=== PATIENT | male | born 1965 | race Caucasian/White ===

== ENCOUNTER 2016-03-09 10:58 | Emergency (ER) | payer MEDICAID ==
[~2016-03-09] VITALS: Ht 175.3 cm; Wt 80.0 kg
[~2016-03-09 10:58] MED LIST: ALBU0.08 NEB; ALBUAER3 INH; PRED20 PO; PRED50 PO; VENTAER INH
[2016-03-09 11:00] VITALS: BP 143/88; PULSE 77; RESP 14; TEMP 97.5; O2SAT 97
[2016-03-09] MEDS ORDERED: predniSONE 20 MG TAB PO ONE (11:15)
--- NOTE | 2016-03-09 11:18 | PD ---
HPI Chief Complaint: Respiratory Symptoms Time Seen by Provider: 11:15 Travel History International Travel<30 days: No Contact w/Intl Traveler<30days: No Traveled to known affect area: No History of Present Illness HPI Patient comes in complaining of asthma exacerbation that began around 3:30 this morning. Patient states he ran out of his rescue inhaler and has been using his albuterol for symptomatic relief. Patient states he even took a walk with his dog this seemed to help improve his symptoms some. Patient states he still feels tightness from his asthma has issues getting his albuterol secondary to his insurance. Patient denies any fevers, chest pain, nausea, vomiting, headache, numbness or tingling anywhere. Patient states feels like his previous asthma exacerbations. PFSH Past Medical History Hx Anticoagulant Therapy: No Asthma: Yes Cardiovascular Problems: No Chemotherapy: No Cerebrovascular Accident: No Diabetes: No Diminished Hearing: No Headaches: Yes Kidney Stones: Yes Respiratory: Yes (asthma) Immunizations Current: Yes Migraines: Yes Pneumonia: Yes Past Surgical History Tonsillectomy: Yes Social History Alcohol Use: Yes (VERY RARE) Tobacco Use: Yes (occasional cigar) Substance Use: No Allergies-Medications (Allergen,Severity, Reaction): Coded Allergies: No Known Allergies (Verified , 03/09/16) Reported Meds & Prescriptions Reported Meds & Active Scripts Active Albuterol Neb (Albuterol Sulfate) 2.5 Mg/3 Ml Neb 2.5 Mg NEB Q4HR NEB PRN While awake Prednisone (21) 10 mg tab Dose Pack (Prednisone) 10 Mg Pack 10 Mg PO DIRECTED Ventolin Hfa 18 GM Inh (Albuterol Sulfate) 90 Mcg/Act Aer 2 Puff INH Q4H PRN Flovent Hfa 10.6 GM Inh (Fluticasone Propionate) 44 Mcg/Act Inh 2 Puff INH BID Use daily at the same time. Albuterol Neb (Albuterol Sulfate) 2.5 Mg/3 Ml Neb 2.5 Mg NEB Q4HR NEB PRN Ventolin Hfa 18 GM Inh (Albuterol Sulfate) 90 Mcg/Act Aer 2 Puff INH Q4H PRN Reported Proair Hfa 8.5 GM Inh (Albuterol Sulfate) 90 Mcg/Act Aer 1 Puff INH Q4H PRN 108 mcg/actuation Review of Systems Except as stated in HPI: all other systems reviewed are Neg Physical Exam Narrative GENERAL: Well-developed, well nourished, in no acute distress, and non-ill appearing. SKIN: Warm and dry. HEAD: Atraumatic. Normocephalic. EYES: Pupils equal and round. EOMI. No scleral icterus. No injection or drainage. ENT: No nasal bleeding or discharge. Mucous membranes pink and moist. NECK: Trachea midline. Supple. No nuclear rigidity. CARDIOVASCULAR: Regular rate and rhythm. No murmur appreciated. RESPIRATORY: No accessory muscle use. No respiratory distress. Wheezing noted throughout. Breath sounds equal bilaterally. Speaking in full sentences. MUSCULOSKELETAL: No obvious deformities. No clubbing. No cyanosis. No edema. Full range of motion. NEUROLOGICAL: Awake and alert. No obvious cranial nerve deficits. Motor grossly within normal limits. Normal speech. PSYCHIATRIC: Appropriate mood and affect; insight and judgment normal. Data Data Last Documented VS Vital Signs Date Time Temp Pulse Resp B/P Pulse Ox O2 Delivery O2 Flow Rate FiO2 03/09/16 13:27 88 20 135/74 99 03/09/16 12:09 21 03/09/16 11:00 97.5 Room Air Orders Albuterol-Ipratropium Neb (Duoneb Neb) (03/09/16 11:15) Prednisone (Deltasone) (03/09/16 11:15) MDM Medical Decision Making Medical Screen Exam Complete: Yes Emergency Medical Condition: Yes Differential Diagnosis Asthma exacerbation, pneumonia, bronchitis, upper respiratory infection, other Narrative Course The patient looks great and improved well with Nebulizer and steroid medication. The patient is moving air well and in no distress nor significant dyspnea, and oxygen saturation is within normal limits. There is no clinical evidence to suggest pneumonia at this time. Diagnosis, plan of care and management were discussed with the patient who agreed with plan and feels better and ready to go home. The patient was instructed to return if worsen, worsening difficulty breathing or wheezing, persistent fever, chest pain or as needed. Patient in no obvious distress upon re-evaluation. Discussed patient with Dr. Abad, who saw and evaluated the patient recommended starting the patient on Flovent along with his rescue inhaler. Any questions/concerns in reference to patient diagnosis/condition discussed and clarified prior to patient's discharge. Reinforced sheer importance of close follow up with patient's primary physician or primary care clinic. Instructed patient to return to ED immediately, if symptoms return/worsen. Pt showed understanding of above instructions. Further instructions and recommendations were detailed in discharge paperwork. Pt ambulated without difficulty out of ED at discharge. Scripts Albuterol Neb 2.5 Mg/3 Ml Neb2.5 Mg NEB Q4HR NEB PRN (SHORTNESS OF BREATH) #1 BOX Ref 0 While awake Prov:Saulo Abad MD 03/09/16 Prednisone (21) 10 mg tab Dose Pack 10 Mg Pack10 Mg PO DIRECTED #1 DSPK Ref 0 Prov:Saulo Abad MD 03/09/16 Albuterol 18 GM Inh (Ventolin Hfa 18 GM Inh)90 Mcg/Act Aer2 Puff INH Q4H PRN ( SHORTNESS OF BREATH) #1 INHALER Ref 2 Prov:Saulo Abad MD 03/09/16 Fluticasone 10.6 GM Inh (Flovent Hfa 10.6 GM Inh)44 Mcg/Act Inh2 Puff INH BID # 1 INHALER Ref 0 Use daily at the same time. Prov:Saulo Abad MD 03/09/16 Wil Lechuga Mar 09, 2016 11:17
[2016-03-09] MEDS ORDERED: PRED10PA PO (11:59)
[2016-03-09] MEDS ORDERED: FLUTI44I INH (11:59)
[2016-03-09] MEDS ORDERED: VENTAER INH (11:59)
[2016-03-09] MEDS: RESP: ALBUTEROL 2.5 MG/IPRATROPIUM 0.5 MG NEB (SCH) INH ×2 (12:06→12:07)
[2016-03-09 12:09] VITALS: O2SAT 94
[2016-03-09] MEDS ORDERED: ALBU0.08 NEB (12:20)
[2016-03-09 13:27] VITALS: BP 135/74
--- NOTE | 2016-03-09 13:44 | PD ---
Data Data Last Documented VS Vital Signs Date Time Temp Pulse Resp B/P Pulse Ox O2 Delivery O2 Flow Rate FiO2 03/09/16 13:27 88 20 135/74 99 03/09/16 12:09 21 03/09/16 11:00 97.5 Room Air Orders Albuterol-Ipratropium Neb (Duoneb Neb) (03/09/16 11:15) Prednisone (Deltasone) (03/09/16 11:15) MDM Supervised Visit with OLIVIA: Yes Narrative Course The history, exam, and medical decision-making in the associated mid-level provider note were completed with my assistance. I reviewed and agree with the findings presented. I attest that I had a [id number] encounter with the patient on the same day, and personally performed and documented my assessment and findings in the medical record. *My assessment and Findings: 50-year-old male with a history of asthma, presents with worsening asthma symptoms, out of medications. Some URI symptoms. No evidence of pneumonia. Recommend continue supportive treatment. Patient Instructions: General Instructions Departure Forms: Tests/Procedures Scripts Albuterol Neb 2.5 Mg/3 Ml Neb2.5 Mg NEB Q4HR NEB PRN (SHORTNESS OF BREATH) #1 BOX Ref 0 While awake Prov:Saulo Abad MD 03/09/16 Prednisone (21) 10 mg tab Dose Pack 10 Mg Pack10 Mg PO DIRECTED #1 DSPK Ref 0 Prov:Saulo Abad MD 03/09/16 Albuterol 18 GM Inh (Ventolin Hfa 18 GM Inh)90 Mcg/Act Aer2 Puff INH Q4H PRN ( SHORTNESS OF BREATH) #1 INHALER Ref 2 Prov:Saulo Abad MD 03/09/16 Fluticasone 10.6 GM Inh (Flovent Hfa 10.6 GM Inh)44 Mcg/Act Inh2 Puff INH BID # 1 INHALER Ref 0 Use daily at the same time. Prov:Saulo Abad MD 03/09/16 Disposition: 01 DISCHARGE HOME Saulo Abad MD Mar 09, 2016 13:43
== END 2016-03-09 13:27 | disposition home or self-care (01) ==
LOC: NEPE 10:58
DX: J45.901 Unspecified asthma with (acute) exacerbation (principal)
CPT/HCPCS: 94640; 94664; 99283; J7512

== ENCOUNTER 2016-04-25 04:16 | Emergency (ER) | payer MEDICAID ==
[~2016-04-25] VITALS: Ht 172.7 cm; Wt 80.0 kg
[~2016-04-25 04:16] MED LIST changes: +FLUTI44I INH; +PRED10PA PO; -PRED20 PO; -PRED50 PO
[2016-04-25 04:18] VITALS: BP 143/85; PULSE 76; RESP 16; TEMP 98; O2SAT 94
[2016-04-25 04:31] VITALS: BP 132/88; PULSE 76; RESP 21; O2SAT 96
[2016-04-25] MEDS: RESP: ALBUTEROL 2.5 MG/IPRATROPIUM 0.5 MG NEB (SCH) INH (04:38)
[2016-04-25] MEDS ORDERED: predniSONE 20 MG TAB PO ONE (04:45)
--- NOTE | 2016-04-25 05:18 | PD ---
HPI Chief Complaint: Respiratory Symptoms Time Seen by Provider: 04:31 Travel History International Travel<30 days: No Contact w/Intl Traveler<30days: No Traveled to known affect area: No History of Present Illness HPI 50 y/o male presents with cough and wheezing. He has been around multiple sick contacts. He denies other concurrent complaints. He states that his inhaler is not helping. He states he feels worse when he moves around. He denies other modifying factors. He states he used to be a smoker but he quit. PFSH Past Medical History Hx Anticoagulant Therapy: No Asthma: Yes Cardiovascular Problems: No Chemotherapy: No Cerebrovascular Accident: No Diabetes: No Diminished Hearing: No Headaches: Yes Kidney Stones: Yes Respiratory: Yes (ASTHMA) Immunizations Current: Yes Migraines: Yes Pneumonia: Yes Past Surgical History Tonsillectomy: Yes Social History Alcohol Use: Yes (VERY RARE) Tobacco Use: Yes (occasional cigar) Substance Use: No Allergies-Medications (Allergen,Severity, Reaction): Coded Allergies: No Known Allergies (Verified , 04/25/16) Reported Meds & Prescriptions Reported Meds & Active Scripts Active Prednisone 50 Mg Tab 50 Mg PO DAILY Zithromax Z-João (Azithromycin) 250 Mg Dspk 250 Mg PO DIRECTED 500 MG (2 tabs) day 1, then 1 tab days 2-5. Albuterol Neb (Albuterol Sulfate) 2.5 Mg/3 Ml Neb 2.5 Mg NEB Q4HR NEB PRN While awake Flovent Hfa 10.6 GM Inh (Fluticasone Propionate) 44 Mcg/Act Inh 2 Puff INH BID Use daily at the same time. Ventolin Hfa 18 GM Inh (Albuterol Sulfate) 90 Mcg/Act Aer 2 Puff INH Q4H PRN Reported Proair Hfa 8.5 GM Inh (Albuterol Sulfate) 90 Mcg/Act Aer 1 Puff INH Q4H PRN 108 mcg/actuation Review of Systems Except as stated in HPI: all other systems reviewed are Neg Physical Exam Narrative General: No apparent distress, well appearing ENT: mmm Neck: Neck is supple, no meningeal signs, trachea is midline Cardiovascular: Regular rate and rhythm Lungs: No increased respiratory effort noted, faint intermittent wheezing bilaterally Extremities: No edema Neuro: Awake, motor and sensation grossly intact, normal speech Data Data Last Documented VS Vital Signs Date Time Temp Pulse Resp B/P Pulse Ox O2 Delivery O2 Flow Rate FiO2 04/25/16 04:31 76 21 132/88 96 Room Air 04/25/16 04:18 98.0 Orders Influenzae A/B Antigen (04/25/16 04:31) Chest, Pa & Lat (04/25/16 ) Prednisone (Deltasone) (04/25/16 04:45) Albuterol-Ipratropium Neb (Duoneb Neb) (04/25/16 04:45) Albuterol-Ipratropium Neb (Duoneb Neb) (04/25/16 05:30) MDM Medical Decision Making Medical Screen Exam Complete: Yes Emergency Medical Condition: Yes Medical Record Reviewed: Yes (past history confirmed) Interpretation(s) flu is negative Chest x-ray mild bilateral streaky infiltrate Differential Diagnosis Pneumonia, URI, asthma Narrative Course Will check influenza and chest x-ray and dose with prednisone and DuoNeb's and reevaluate on recheck ctab, 98 on room air, Patient denies any new complaints and states that they are feeling better. Patient happy with care, all questions answered. Patient knows that follow up is incumbent on them and to return to the emergency room immediately if new or worsening symptoms develop. Patient given strict return precautions, vitals reviewed and are normal, agrees to further workup as an outpatient. requests albuterol neb refill Diagnosis Primary Impression: Asthma exacerbation Additional Impression: Pneumonia Qualified Code: J18.9 - Pneumonia of both lower lobes due to infectious organism Patient Instructions: General Instructions Additional Instructions: Follow with primary Tuesday, albuterol as needed, return as needed Med/Other Pt SpecificInfo: Prescription(s) given Scripts Prednisone 50 Mg Tab50 Mg PO DAILY #5 TAB Prov:Myrna Mock MD 04/25/16 Azithromycin (Zithromax Z-João)250 Mg [id number] Mg PO DIRECTED #1 DSPK 500 MG (2 tabs) day 1, then 1 tab days 2-5. Prov:Myrna Mock MD 04/25/16 Albuterol Neb 2.5 Mg/3 Ml Neb2.5 Mg NEB Q4HR NEB PRN (SHORTNESS OF BREATH) #1 BOX Ref 0 While awake Prov:Myrna Mock MD 04/25/16 Disposition: 01 DISCHARGE HOME Condition: Stable Myrna Mock MD Apr 25, 2016 05:18
[2016-04-25] MEDS ORDERED: RESP: ALBUTEROL 2.5 MG/IPRATROPIUM 0.5 MG NEB (SCH) NEB ONE (05:30)
--- NOTE | 2016-04-25 05:37 | RADRPT ---
EXAM DATE/TIME: 04/25/2016 05:20 [facility] COMPARISON: CHEST SINGLE AP, October 23, 2015, 22:49. INDICATIONS : Shortness of breath. MEDICAL HISTORY : Asthma SURGICAL HISTORY : None. ENCOUNTER: Initial ACUITY: 1 day PAIN SCORE: 0/10 LOCATION: Bilateral chest FINDINGS: There is mild streaky basilar parenchymal opacity. No evidence of effusion. Cardiomediastinal contour s and pulmonary vascularity are satisfactory. Thoracic skeleton is intact. CONCLUSION: Slight streaky basilar parenchymal opacities. Te Long MD on April 25, 2016 at 5:35 Board Certified Radiologist. This report was verified electronically.
[2016-04-25] MEDS ORDERED: PRED50 PO (05:46)
[2016-04-25] MEDS ORDERED: ZITHTAB PO (05:46)
[2016-04-25] MEDS ORDERED: ALBU0.08 NEB (05:46)
[2016-04-25 05:54] VITALS: BP 131/87
== END 2016-04-25 05:57 | disposition home or self-care (01) ==
LOC: NEPE 04:16
DX: J18.9 Pneumonia, unspecified organism (principal); J45.901 Unspecified asthma with (acute) exacerbation; Z87.891 Personal history of nicotine dependence
CPT/HCPCS: 71020; 87804; 94640; 94664; 99285; J7512

== ENCOUNTER 2016-11-29 05:49 | Emergency (ER) | payer OTHER, MEDICAID ==
[~2016-11-29] VITALS: Ht 175.3 cm; Wt 78.8 kg
[~2016-11-29 05:49] MED LIST changes: -PRED10PA PO; +PRED50 PO; +ZITHTAB PO
[2016-11-29 06:00] VITALS: BP 149/94; PULSE 74; RESP 18; TEMP 98.7; O2SAT 96
--- NOTE | 2016-11-29 06:10 | PD ---
HPI Chief Complaint: Musculoskeletal Complaint Time Seen by Provider: 06:08 Travel History International Travel<30 days: No Contact w/Intl Traveler<30days: No Traveled to known affect area: No History of Present Illness HPI 51-year-old male patient with history of multiple orthopedic surgeries, kidney stones, presents to the ER today because he states that he slipped while getting into his truck and fell onto his left flank area, and is having left flank pains which hurts with movement. He denies any loss of consciousness, significant head injury, or other injuries. Pain is currently measured a 5 out of 10. Modifying Factors: None Associated Signs & Symptoms: Fall, left flank injury Risk Factors: None PFSH Past Medical History Hx Anticoagulant Therapy: No Asthma: Yes Cardiovascular Problems: No Chemotherapy: No Cerebrovascular Accident: No Diabetes: No Diminished Hearing: No Headaches: Yes Kidney Stones: Yes Respiratory: Yes (ASTHMA) Immunizations Current: Yes Migraines: Yes Pneumonia: Yes Past Surgical History Tonsillectomy: Yes Social History Alcohol Use: Yes (VERY RARE) Tobacco Use: Yes (occasional cigar) Substance Use: No Allergies-Medications (Allergen,Severity, Reaction): Coded Allergies: No Known Allergies (Verified , 04/25/16) Reported Meds & Prescriptions Reported Meds & Active Scripts Active Prednisone 50 Mg Tab 50 Mg PO DAILY Zithromax Z-João (Azithromycin) 250 Mg Dspk 250 Mg PO DIRECTED 500 MG (2 tabs) day 1, then 1 tab days 2-5. Albuterol Neb (Albuterol Sulfate) 2.5 Mg/3 Ml Neb 2.5 Mg NEB Q4HR NEB PRN While awake Flovent Hfa 10.6 GM Inh (Fluticasone Propionate) 44 Mcg/Act Inh 2 Puff INH BID Use daily at the same time. Ventolin Hfa 18 GM Inh (Albuterol Sulfate) 90 Mcg/Act Aer 2 Puff INH Q4H PRN Reported Proair Hfa 8.5 GM Inh (Albuterol Sulfate) 90 Mcg/Act Aer 1 Puff INH Q4H PRN 108 mcg/actuation Review of Systems Except as stated in HPI: all other systems reviewed are Neg Physical Exam Narrative GENERAL: Well-developed middle age male patient currently in mild distress. Awake and oriented 3. SKIN: Focused skin assessment warm/dry. HEAD: Atraumatic. Normocephalic. EYES: Pupils equal and round. No scleral icterus. No injection or drainage. ENT: No nasal bleeding or discharge. Mucous membranes pink and moist. NECK: Trachea midline. No JVD. CARDIOVASCULAR: Regular rate and rhythm. No murmur appreciated. RESPIRATORY: No accessory muscle use. Clear to auscultation. Breath sounds equal bilaterally. GASTROINTESTINAL: Abdomen soft, non-tender, nondistended. Hepatic and splenic margins not palpable. BACK: No CVA tenderness. No rash. No point tenderness on palpation of the spine. Mildly tender palpation of the left lower back area in the lumbar region laterally. No obvious ecchymosis or abrasions. MUSCULOSKELETAL: No obvious deformities. No clubbing. No cyanosis. No edema. NEUROLOGICAL: Awake and alert. No obvious cranial nerve deficits. Motor grossly within normal limits. Normal speech. PSYCHIATRIC: Appropriate mood and affect; insight and judgment normal. Data Data Last Documented VS Vital Signs Date Time Temp Pulse Resp B/P (MAP) Pulse Ox O2 Delivery O2 Flow Rate FiO2 11/29/16 06:06 18 11/29/16 06:00 98.7 74 149/94 (112) 96 Orders Orders Basic Metabolic Panel (Bmp) (11/29/16 06:08) Ct Abd/Pel W Iv Contrast(Rout) (11/29/16 06:08) MDM Medical Decision Making Medical Screen Exam Complete: Yes Emergency Medical Condition: Yes Medical Record Reviewed: Yes Differential Diagnosis Back contusion versus acute fractures versus intra-abdominal injuries Narrative Course Considering the area of tenderness, this is much more likely to be a back contusion. It is not in the CVA area and it is likely that acute intra- abdominal injuries or renal injuries should be lower down the list. However, as precaution, I have discussed obtaining CAT scan in for further evaluation versus observation and reevaluation by primary care doctor. Patient at this point declines getting CAT scan. And considering he is doing well, is ambulatory without issues and with a completely benign abdomen, I think that this is a reasonable option. However, he should return for any worsening in abdominal pain, back pain, or new symptoms. The plan was discussed with him and the risks were discussed with him and he states understanding. Diagnosis Primary Impression: Contusion of flank and back Disposition: 01 DISCHARGE HOME Condition: Stable Estuardo Tanner MD Nov 29, 2016 06:10
[2016-11-29] MEDS ORDERED: CYCL1TAB29 PO (06:18)
[2016-11-29 06:24] VITALS: BP 150/93
[2016-11-29] MEDS ORDERED: IBUPROFEN 600 MG TAB PO ONE (06:30)
[2016-11-29] MEDS ORDERED: CYCLOBENZAPRINE HCL 10 MG TAB PO ONE (06:30)
== END 2016-11-29 06:34 | disposition home or self-care (01) ==
LOC: PHED 05:49
DX: S30.0XXA Contusion of lower back and pelvis, initial encounter (principal); S20.222A Contusion of left back wall of thorax, initial encounter; S30.1XXA Contusion of abdominal wall, initial encounter; W01.0XXA Fall on same level from slipping, tripping and stumbling without subsequent striking against object, initial encounter
CPT/HCPCS: 99283

== ENCOUNTER 2017-02-10 12:50 | Emergency (ER) | payer MEDICAID, OTHER ==
[~2017-02-10] VITALS: Ht 175.3 cm; Wt 76.0 kg
[~2017-02-10 12:50] MED LIST changes: -ALBU0.08 NEB; -ALBUAER3 INH; +CYCL10TA PO; -FLUTI44I INH; -PRED50 PO; -VENTAER INH; -ZITHTAB PO
[2017-02-10 12:54] VITALS: BP 137/92; PULSE 98; RESP 20; TEMP 99.9; O2SAT 96
--- NOTE | 2017-02-10 13:08 | PD ---
HPI Chief Complaint: Respiratory Symptoms Time Seen by Provider: 13:06 Travel History International Travel<30 days: No Contact w/Intl Traveler<30days: No Traveled to known affect area: No History of Present Illness HPI 51-year-old male with history of asthma presents to the emergency department for evaluation of cough, chest congestion, worsening over the last 4 days. Patient states that it started as what he thought was a mild cold and felt like it was exacerbating his asthma however it has progressed and is now heavy in his chest. He is producing a yellow sputum. He has had fever and chills for the last 2 days. Denies any nausea or vomiting. No diarrhea. Patient has no other symptoms to report at this time. PFSH Past Medical History Hx Anticoagulant Therapy: No Asthma: Yes Cardiovascular Problems: No Chemotherapy: No Cerebrovascular Accident: No Diabetes: No Diminished Hearing: No Headaches: Yes Kidney Stones: Yes Respiratory: Yes (ASTHMA) Immunizations Current: Yes Migraines: Yes Pneumonia: Yes Past Surgical History Tonsillectomy: Yes Social History Alcohol Use: Yes (VERY RARE) Tobacco Use: Yes (occasional cigar) Substance Use: No Allergies-Medications (Allergen,Severity, Reaction): Coded Allergies: No Known Allergies (Verified , 11/29/16) Reported Meds & Prescriptions Reported Meds & Active Scripts Active Zofran Odt (Ondansetron Odt) 4 Mg Tab 4 Mg SL Q6HR PRN Tamiflu (Oseltamivir Phosphate) 75 Mg Cap 75 Mg PO BID 5 Days Flexeril (Cyclobenzaprine HCl) 10 Mg Tab 10 Mg PO TID Review of Systems Except as stated in HPI: all other systems reviewed are Neg Physical Exam Narrative GENERAL: Well-nourished male patient, ambulatory no acute distress. SKIN: Focused skin assessment warm/dry. HEAD: Atraumatic. Normocephalic. EYES: Pupils equal and round. No scleral icterus. No injection or drainage. ENT: No nasal bleeding or discharge. Mucous membranes pink and moist. Pharynx with erythema, no exudates. NECK: Trachea midline. No JVD. CARDIOVASCULAR: Elevated rate and rhythm. No murmur appreciated. RESPIRATORY: No accessory muscle use. Coarse, inspiratory and expiratory wheeze to auscultation. Breath sounds equal bilaterally. GASTROINTESTINAL: Abdomen soft, non-tender, nondistended. Hepatic and splenic margins not palpable. MUSCULOSKELETAL: No obvious deformities. No clubbing. No cyanosis. No edema. NEUROLOGICAL: Awake and alert. No obvious cranial nerve deficits. Motor grossly within normal limits. Normal speech. PSYCHIATRIC: Appropriate mood and affect; insight and judgment normal. Data Data Last Documented VS Vital Signs Date Time Temp Pulse Resp B/P (MAP) Pulse Ox O2 Delivery O2 Flow Rate FiO2 02/10/17 14:23 02/10/17 12:54 99.9 98 20 96 Room Air Orders Orders Influenzae A/B Antigen (02/10/17 13:11) Albuterol-Ipratropium Neb (Duoneb Neb) (02/10/17 13:15) Ed Discharge Order (02/10/17 14:02) [facility] Medical Decision Making Medical Screen Exam Complete: Yes Emergency Medical Condition: Yes Medical Record Reviewed: Yes Differential Diagnosis Influenza versus pneumonia versus asthma exacerbation Narrative Course 51-year-old male presents to the emergency department for evaluation. Patient appears without distress. He does have a low-grade temperature and is mildly tachycardic. Influenza screen is positive for influenza B. Patient is given DuoNeb treatments and steroids while here. I discussed with my attending physician and we will start him on Tamiflu due to comorbidity of asthma. Patient is counseled on care and agrees to return immediately with any acute worsening of symptoms. Diagnosis Primary Impression: Influenza B Referrals: Primary Care Physician Patient Instructions: General Instructions, Influenza (ED) Additional Instructions: Rest Maintain adequate oral hydration Follow-up with a primary care provider Return immediately with any acute worsening symptoms Med/Other Pt SpecificInfo: Prescription(s) given Scripts Oseltamivir (Tamiflu) 75 Mg Cap 75 MG PO BID for Mgmt Viral Infection for 5 Days, #10 CAP 0 Refills Prov: Mccarty,Karma FU 02/10/17 Disposition: 01 DISCHARGE HOME Condition: Stable Karma Mccarty Feb 10, 2017 13:07
[2017-02-10] MEDS: RESP: ALBUTEROL 2.5 MG/IPRATROPIUM 0.5 MG NEB (SCH) INH ×3 (13:15→13:36)
[2017-02-10] MEDS ORDERED: OSEL75 PO (14:13)
== END 2017-02-10 14:25 | disposition home or self-care (01) ==
LOC: NEPD 12:50
DX: J11.1 Influenza due to unidentified influenza virus with other respiratory manifestations (principal); J45.909 Unspecified asthma, uncomplicated; Z87.442 Personal history of urinary calculi; F17.290 Nicotine dependence, other tobacco product, uncomplicated
CPT/HCPCS: 87804; 94664; 99283

== ENCOUNTER 2017-02-12 22:38 | Emergency (ER) | payer SELFPAY ==
[~2017-02-12] VITALS: Ht 172.7 cm; Wt 73.0 kg
[~2017-02-12 22:38] MED LIST changes: +OSEL75 PO
[2017-02-12 23:01] VITALS: BP 155/88; PULSE 80; RESP 18; TEMP 99.3; O2SAT 95
[2017-02-12] MEDS ORDERED: SODIUM CHLOR 0.9% 1000 ML INJ 1,000 ML IV ONE (23:30)
[2017-02-12] MEDS ORDERED: KETOROLAC TROMETHAMINE 30 MG/ML (IVP) VIAL IV PUSH ONE (23:30)
--- NOTE | 2017-02-12 23:32 | PD ---
HPI Chief Complaint: GI Complaint Time Seen by Provider: 23:21 Travel History International Travel<30 days: No Contact w/Intl Traveler<30days: No Traveled to known affect area: No History of Present Illness HPI This is a 51-year-old male who was diagnosed with influenza B 2 days ago and started on Tamiflu who presents to the emergency department with vomiting. His vomiting is been constant since he started the Tamiflu, multiple times per day more than he can count, associated with diffuse abdominal cramping and body aches with no diarrhea. He's not been able to eat or drink anything and he can barely keep antipyretics down. PFSH Past Medical History Hx Anticoagulant Therapy: No Asthma: Yes Cardiovascular Problems: No Chemotherapy: No Cerebrovascular Accident: No Diabetes: No Diminished Hearing: No Headaches: Yes Kidney Stones: Yes Respiratory: Yes (ASTHMA) Immunizations Current: Yes Migraines: Yes Pneumonia: Yes Tetanus Vaccination: Unknown Influenza Vaccination: No Past Surgical History Tonsillectomy: Yes Social History Alcohol Use: Yes (VERY RARE) Tobacco Use: Yes (occasional cigar) Substance Use: No Allergies-Medications (Allergen,Severity, Reaction): Coded Allergies: No Known Allergies (Verified , 11/29/16) Reported Meds & Prescriptions Reported Meds & Active Scripts Active Tamiflu (Oseltamivir Phosphate) 75 Mg Cap 75 Mg PO BID 5 Days Flexeril (Cyclobenzaprine HCl) 10 Mg Tab 10 Mg PO TID Review of Systems Except as stated in HPI: all other systems reviewed are Neg Physical Exam Narrative GENERAL:Well appearing, no acute distress SKIN: Focused skin assessment warm and dry. HEAD: Atraumatic. Normocephalic. EYES: Pupils equal and round. No injection or drainage. ENT: Moist mucous membranes. Posterior pharyngeal erythema with no exudates. Some tender anterior cervical lymphadenopathy. NECK: Trachea midline. CARDIOVASCULAR: Regular rate and rhythm. No murmur appreciated. RESPIRATORY: Clear to auscultation. Breath sounds equal bilaterally. GASTROINTESTINAL: Abdomen soft, non-tender, nondistended. MUSCULOSKELETAL: No obvious deformities. NEUROLOGICAL: Awake and alert. No obvious cranial nerve deficits. Moving all extremities. PSYCHIATRIC: Appropriate mood and affect; insight and judgment normal. Data Data Last Documented VS Vital Signs Date Time Temp Pulse Resp B/P (MAP) Pulse Ox O2 Delivery O2 Flow Rate FiO2 02/12/17 23:08 (110) 02/12/17 23:01 99.3 80 18 95 Orders Orders Ketorolac Inj (Toradol Inj) (02/12/17 23:30) Sodium Chlor 0.9% 1000 Ml Inj (Ns 1000 M (02/12/17 23:30) Complete Blood Count With Diff (02/12/17 23:30) Comprehensive Metabolic Panel (02/12/17 23:30) ^ Insert Iv (02/12/17 23:30) Ondansetron Inj (Zofran Inj) (02/13/17 00:15) Labs Laboratory Tests Test 02/12/17 23:44 White Blood Count 9.8 TH/MM3 Red Blood Count 5.55 MIL/MM3 Hemoglobin 16.9 GM/DL Hematocrit 50.3 % Mean Corpuscular Volume 90.6 FL Mean Corpuscular Hemoglobin 30.5 PG Mean Corpuscular Hemoglobin Concent 33.6 % Red Cell Distribution Width 13.8 % Platelet Count 224 TH/MM3 Mean Platelet Volume 7.1 FL Neutrophils (%) (Auto) 75.1 % Lymphocytes (%) (Auto) 11.7 % Monocytes (%) (Auto) 12.6 % Eosinophils (%) (Auto) 0.0 % Basophils (%) (Auto) 0.6 % Neutrophils # (Auto) 7.3 TH/MM3 Lymphocytes # (Auto) 1.2 TH/MM3 Monocytes # (Auto) 1.2 TH/MM3 Eosinophils # (Auto) 0.0 TH/MM3 Basophils # (Auto) 0.1 TH/MM3 CBC Comment DIFF FINAL Differential Comment Blood Urea Nitrogen 24 MG/DL Creatinine 0.92 MG/DL Random Glucose 129 MG/DL Total Protein 8.6 GM/DL Albumin 3.8 GM/DL Calcium Level 9.3 MG/DL Alkaline Phosphatase 74 U/L Aspartate Amino Transf (AST/SGOT) 20 U/L Alanine Aminotransferase (ALT/SGPT) 25 U/L Total Bilirubin 0.8 MG/DL Sodium Level 138 MEQ/L Potassium Level 3.4 MEQ/L Chloride Level 99 MEQ/L Carbon Dioxide Level 29.8 MEQ/L Anion Gap 9 MEQ/L Estimat Glomerular Filtration Rate 86 ML/MIN MDM Medical Decision Making Medical Screen Exam Complete: Yes Emergency Medical Condition: Yes Interpretation(s) No leukocytosis Mild hypokalemia Differential Diagnosis Influenza, gastroenteritis, dehydration, electrolyte abnormality Narrative Course This is a 51-year-old male who presents to the emergency department with vomiting in the setting of recently starting Tamiflu. Labs are obtained which demonstrates a mild hypokalemia but are otherwise reassuring. He was given a liter of IV fluid and Zofran. I think patient can be discharged home. He was given a prescription for Zofran and advised that if he is too symptomatic from the Tamiflu, the adverse effects may outweigh the risks and he can discontinue the medication. Diagnosis Primary Impression: Influenza Patient Instructions: General Instructions Additional Instructions: If you develop lightheadedness, dizziness, persistent vomiting, inability to eat , or severe abdominal pain return to the emergency department. Followup with your primary care physician in 2-3 days if your symptoms have not resolved. Take Zofran as needed for nausea. Med/Other Pt SpecificInfo: Prescription(s) given Scripts Ondansetron Odt (Zofran Odt) 4 Mg Tab 4 MG SL Q6HR Y for Nausea/Vomiting, #15 TAB 0 Refills Prov: Mary Youngblood MD 02/13/17 Disposition: 01 DISCHARGE HOME Condition: Stable Mary Youngblood MD Feb 12, 2017 23:32
[2017-02-12 23:47] LABS: AUTOMATED NEUTROPHIL # 7.3 TH/MM3 (1.8-7.7); BASOPHIL # 0.1 TH/MM3 (0-0.2); BASOPHIL % 0.6 % (0.0-2.0); HEMATOCRIT 50.3 % (39.0-51.0); HEMOGLOBIN 16.9 GM/DL (13.0-17.0); LYMPH % 11.7 % (9.0-44.0); LYMPHOCYTE # 1.2 TH/MM3 (1.0-4.8); MEAN CELL VOLUME 90.6 FL (80.0-100.0); MEAN CORPUSCULAR HEMOGLOBIN 30.5 PG (27.0-34.0); MEAN CORPUSCULAR HGB CONC 33.6 % (32.0-36.0); MEAN PLATELET VOLUME 7.1 FL (7.0-11.0); MONO % 12.6 % (0.0-8.0); MONOCYTE # 1.2 TH/MM3 (0-0.9); NEUT % 75.1 % (16.0-70.0); PLATELET COUNT 224 TH/MM3 (150-450); RED BLOOD COUNT 5.55 MIL/MM3 (4.50-5.90); RED CELL DISTRIBUTION WIDTH 13.8 % (11.6-17.2); WHITE BLOOD COUNT 9.8 TH/MM3 (4.0-11.0)
[2017-02-12 23:54] LABS: CHLORIDE 99 MEQ/L (98-107); SODIUM (NA) 138 MEQ/L (136-145)
[2017-02-12 23:57] LABS: ALBUMIN 3.8 GM/DL (3.4-5.0); BICARBONATE 29.8 MEQ/L (21.0-32.0); BLOOD UREA NITROGEN 24 MG/DL (7-18); CALCIUM 9.3 MG/DL (8.5-10.1); GLUCOSE,RANDOM 129 MG/DL (74-106)
[2017-02-13] LABS: ALT (GPT) 25 U/L (12-78); AST (GOT) 20 U/L (15-37); CREATININE 0.92 MG/DL (0.60-1.30); GLOMERULAR FILTRATION RATE 86 ML/MIN (>89)
[2017-02-13 00:02] LABS: TOTAL BILIRUBIN ADULT 0.8 MG/DL (0.2-1.0); TOTAL PROTEIN 8.6 GM/DL (6.4-8.2)
[2017-02-13 00:03] LABS: ALKALINE PHOSPHATASE 74 U/L (45-117)
[2017-02-13] MEDS ORDERED: ZOFR4TAB3 SL (00:12)
[2017-02-13] MEDS ORDERED: ONDANSETRON HCL 4 MG/2 ML VIAL IV ONE (00:15)
== END 2017-02-13 00:43 | disposition home or self-care (01) ==
LOC: PHED 22:38
DX: J11.1 Influenza due to unidentified influenza virus with other respiratory manifestations (principal); R11.10 Vomiting, unspecified; E87.6 Hypokalemia; F17.290 Nicotine dependence, other tobacco product, uncomplicated; J45.909 Unspecified asthma, uncomplicated; Z87.442 Personal history of urinary calculi
CPT/HCPCS: 80053; 85025; 96361; 96374; 96375; 99284; J1885; J2405; J7030

== ENCOUNTER 2017-04-10 02:16 | Emergency (ER) | payer SELFPAY ==
[~2017-04-10] VITALS: Ht 175.3 cm; Wt 73.0 kg
[~2017-04-10 02:16] MED LIST changes: +ZOFR4TAB3 SL
[2017-04-10 02:23] VITALS: BP 133/93; PULSE 86; RESP 24; TEMP 98.5; O2SAT 94
[2017-04-10] MEDS ORDERED: ALBU0.08 NEB (02:33)
[2017-04-10 02:37] VITALS: RESP 18; O2SAT 93
[2017-04-10] MEDS: RESP: ALBUTEROL 2.5 MG/IPRATROPIUM 0.5 MG NEB (SCH) INH ×3 (02:44→03:28)
[2017-04-10] MEDS ORDERED: methylPREDNISolone SOD SUCC 125 MG/2 ML VIAL IV PUSH ONE (02:45)
[2017-04-10] MEDS ORDERED: SODIUM CHLORIDE 0.9% FLUSH 10 ML FLUSH IVF PRN (02:45)
[2017-04-10 02:54] LABS: AUTOMATED NEUTROPHIL # 6.1 TH/MM3 (1.8-7.7); BASOPHIL # 0.1 TH/MM3 (0-0.2); BASOPHIL % 0.7 % (0.0-2.0); EOSINOPHIL # 0.8 TH/MM3 (0-0.4); EOSINOPHIL % 7.7 % (0.0-4.0); HEMATOCRIT 50.5 % (39.0-51.0); LYMPH % 26.4 % (9.0-44.0); LYMPHOCYTE # 2.8 TH/MM3 (1.0-4.8); MEAN CELL VOLUME 90.5 FL (80.0-100.0); MEAN CORPUSCULAR HEMOGLOBIN 30.4 PG (27.0-34.0); MEAN CORPUSCULAR HGB CONC 33.6 % (32.0-36.0); MEAN PLATELET VOLUME 7.3 FL (7.0-11.0); MONO % 8.4 % (0.0-8.0); MONOCYTE # 0.9 TH/MM3 (0-0.9); NEUT % 56.8 % (16.0-70.0); PLATELET COUNT 322 TH/MM3 (150-450); RED BLOOD COUNT 5.58 MIL/MM3 (4.50-5.90); RED CELL DISTRIBUTION WIDTH 12.7 % (11.6-17.2); WHITE BLOOD COUNT 10.7 TH/MM3 (4.0-11.0)
[2017-04-10 03:07] LABS: CALCIUM 9.1 MG/DL (8.5-10.1)
[2017-04-10 03:08] LABS: BICARBONATE 25.8 MEQ/L (21.0-32.0)
[2017-04-10] MEDS ORDERED: IPRASOL INH (03:13)
[2017-04-10] MEDS ORDERED: PRED50 PO (03:16)
--- NOTE | 2017-04-10 03:24 | RADRPT ---
EXAM DATE/TIME: 04/10/2017 02:55 [facility] COMPARISON: No previous studies available for comparison. INDICATIONS : Shortness of breath. MEDICAL HISTORY : Asthma SURGICAL HISTORY : None. ENCOUNTER: Initial ACUITY: 2 days PAIN SCORE: 0/10 LOCATION: Bilateral chest FINDINGS: PA and lateral views of the chest demonstrate the lungs to be symmetrically aerated without evidence of mass, infiltrate or effusion. Mild peribronchial thickening present. The cardiomediastinal contour s are unremarkable. Osseous structures are intact. CONCLUSION: Mild peribronchial thickening without focal infiltrate or effusion. Sea Montemayor MD on April 10, 2017 at 3:21 Board Certified Radiologist. This report was verified electronically.
--- NOTE | 2017-04-10 03:57 | PD ---
HPI Chief Complaint: Respiratory Symptoms Time Seen by Provider: 02:32 Travel History International Travel<30 days: No Contact w/Intl Traveler<30days: No Traveled to known affect area: No History of Present Illness HPI The patient is a 51-year-old with a history of asthma who complains of wheezing and shortness of breath for 1 day. He denies any fever. He was already put on Tamiflu last month. He does not smoke. PFSH Past Medical History Hx Anticoagulant Therapy: No Asthma: Yes Cardiovascular Problems: No Chemotherapy: No Cerebrovascular Accident: No Diabetes: No Diminished Hearing: No Headaches: Yes Kidney Stones: Yes Respiratory: Yes (ASTHMA) Immunizations Current: Yes Migraines: Yes Pneumonia: Yes Tetanus Vaccination: Unknown Influenza Vaccination: No Past Surgical History Tonsillectomy: Yes Social History Alcohol Use: Yes (VERY RARE) Tobacco Use: Yes (occasional cigar) Substance Use: No Allergies-Medications (Allergen,Severity, Reaction): Coded Allergies: No Known Allergies (Verified Adverse Reaction, Unknown, 04/10/17) Reported Meds & Prescriptions Reported Meds & Active Scripts Active Prednisone 50 Mg Tab 50 Mg PO BID Duoneb (Ipratropium-Albuterol Neb) 0.5-2.5 Mg/3 Ml Neb 1 Nebule INH Q4HR NEB Reported Albuterol Neb (Albuterol Sulfate) 2.5 Mg/3 Ml Neb 2.5 Mg NEB QID NEB Review of Systems Except as stated in HPI: all other systems reviewed are Neg Physical Exam Narrative GENERAL: The patient is alert, oriented 3 in slight respiratory distress. His vital signs show blood pressure 133/93 with oximetry 94% but are otherwise normal. SKIN: Focused skin assessment warm/dry. HEAD: Atraumatic. Normocephalic. EYES: Pupils equal and round. No scleral icterus. No injection or drainage. ENT: No nasal bleeding or discharge. Mucous membranes pink and moist. NECK: Trachea midline. No JVD. CARDIOVASCULAR: Regular rate and rhythm. No murmur appreciated. RESPIRATORY: No accessory muscle use. Scattered wheezes are heard in all lung [place].. Breath sounds equal bilaterally. GASTROINTESTINAL: Abdomen soft, non-tender, nondistended. Hepatic and splenic margins not palpable. MUSCULOSKELETAL: No obvious deformities. No clubbing. No cyanosis. No edema. NEUROLOGICAL: Awake and alert. No obvious cranial nerve deficits. Motor grossly within normal limits. Normal speech. PSYCHIATRIC: Appropriate mood and affect; insight and judgment normal. Data Data Last Documented VS Vital Signs Date Time Temp Pulse Resp B/P (MAP) Pulse Ox O2 Delivery O2 Flow Rate FiO2 04/10/17 02:37 93 Room Air 04/10/17 02:37 18 04/10/17 02:33 82 04/10/17 02:23 98.5 133/93 (106) Orders Orders Complete Blood Count With Diff (04/10/17 02:32) Basic Metabolic Panel (Bmp) (04/10/17 02:32) Influenzae A/B Antigen (04/10/17 02:32) Iv Access Insert/Monitor (04/10/17 02:32) Ecg Monitoring (04/10/17 02:32) Oximetry (04/10/17 02:32) Oxygen Administration (04/10/17 02:32) Chest, Pa & Lat (04/10/17 02:32) Sodium Chloride 0.9% Flush (Ns Flush) (04/10/17 02:45) Methylprednisolone So Succ Inj (Solumedr (04/10/17 02:45) Albuterol-Ipratropium Neb (Duoneb Neb) (04/10/17 02:45) Labs Laboratory Tests Test 04/10/17 02:45 White Blood Count 10.7 TH/MM3 Red Blood Count 5.58 MIL/MM3 Hemoglobin 17.0 GM/DL Hematocrit 50.5 % Mean Corpuscular Volume 90.5 FL Mean Corpuscular Hemoglobin 30.4 PG Mean Corpuscular Hemoglobin Concent 33.6 % Red Cell Distribution Width 12.7 % Platelet Count 322 TH/MM3 Mean Platelet Volume 7.3 FL Neutrophils (%) (Auto) 56.8 % Lymphocytes (%) (Auto) 26.4 % Monocytes (%) (Auto) 8.4 % Eosinophils (%) (Auto) 7.7 % Basophils (%) (Auto) 0.7 % Neutrophils # (Auto) 6.1 TH/MM3 Lymphocytes # (Auto) 2.8 TH/MM3 Monocytes # (Auto) 0.9 TH/MM3 Eosinophils # (Auto) 0.8 TH/MM3 Basophils # (Auto) 0.1 TH/MM3 CBC Comment DIFF FINAL Differential Comment Blood Urea Nitrogen 24 MG/DL Creatinine 1.00 MG/DL Random Glucose 110 MG/DL Calcium Level 9.1 MG/DL Sodium Level 139 MEQ/L Potassium Level 3.6 MEQ/L Chloride Level 106 MEQ/L Carbon Dioxide Level 25.8 MEQ/L Anion Gap 7 MEQ/L Estimat Glomerular Filtration Rate 78 ML/MIN [facility] Medical Decision Making Medical Screen Exam Complete: Yes Emergency Medical Condition: Yes Medical Record Reviewed: Yes Interpretation(s) The chest x-ray shows mild peribronchial thickening without focal infiltrate or effusion. The CBC is normal. The basic metabolic profile shows a BUN of 24 and GFR of 78 but is otherwise unremarkable. The influenza A/B antigen is negative for flu a and flu B antigen. Differential Diagnosis Acute asthma, bronchitis with bronchospasm, pneumonia, pulmonary embolus- extremely unlikely Narrative Course The patient states she got definite relief with the albuterol plus ipratropium. He does not have ipratropium at home, only albuterol for his nebulizer. The chest x-ray shows peribronchial thickening. This is likely bronchitis. Fortunately, he did get some relief with the ipratropium and I will prescribe this for him at home-DuoNeb. I will also giving him a stepwise tapered course of prednisone. Diagnosis Primary Impression: Asthma exacerbation Additional Impression: Bronchitis Additional Instructions: The prednisone, as we discussed, is taken one tablet twice daily for 4 days followed by one tablet once daily for 4 days. Follow-up with your primary care physician next week. Med/Other Pt SpecificInfo: Prescription(s) given Scripts Prednisone (Prednisone) 50 Mg Tab 50 MG PO BID for X 4 days than daily X 4 days, #12 TAB 0 Refills Prov: Deep Reeves MD 04/10/17 Ipratropium-Albuterol Neb (Duoneb) 0.5-2.5 Mg/3 Ml Neb 1 NEBULE INH Q4HR NEB for SHORTNESS OF BREATH, #120 NEBULE 0 Refills Prov: Deep Reeves MD 04/10/17 Deep Reeves MD Apr 10, 2017 03:57
[2017-04-10 03:58] VITALS: BP 134/86; PULSE 84; RESP 18; O2SAT 96
== END 2017-04-10 04:08 | disposition home or self-care (01) ==
LOC: PHED 02:16
DX: J45.901 Unspecified asthma with (acute) exacerbation (principal); F17.290 Nicotine dependence, other tobacco product, uncomplicated; Z79.51 Long term (current) use of inhaled steroids; Z87.442 Personal history of urinary calculi
CPT/HCPCS: 71046; 80048; 85025; 87804; 94640; 94664; 96374; 99284; J2930

== ENCOUNTER 2017-04-17 20:48 | Emergency (ER) | payer SELFPAY ==
[~2017-04-17] VITALS: Ht 175.3 cm; Wt 75.4 kg
[~2017-04-17 20:48] MED LIST changes: +ALBU0.08 NEB; -CYCL10TA PO; +IPRASOL INH; -OSEL75 PO; +PRED50 PO; -ZOFR4TAB3 SL
[2017-04-17 20:53] VITALS: BP 136/87; PULSE 88; RESP 18; TEMP 98.9; O2SAT 96
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
== END 2017-04-17 22:04 | disposition home or self-care (01) ==
LOC: PHEFT 20:48
DX: S93.401A Sprain of unspecified ligament of right ankle, initial encounter (principal); S01.119A Laceration without foreign body of unspecified eyelid and periocular area, initial encounter; F17.290 Nicotine dependence, other tobacco product, uncomplicated; J45.909 Unspecified asthma, uncomplicated; Y08.09XA Assault by strike by other specified type of sport equipment, initial encounter; Z86.73 Personal history of transient ischemic attack (TIA), and cerebral infarction without residual deficits; Z87.442 Personal history of urinary calculi; Z87.01 Personal history of pneumonia (recurrent)
CPT/HCPCS: 73610; 99283; E0113; L1906

== ENCOUNTER 2017-05-15 00:57 | Emergency (ER) | payer SELFPAY ==
[~2017-05-15] VITALS: Ht 175.3 cm; Wt 76.8 kg
[~2017-05-15 00:57] MED LIST changes: -PRED50 PO
[2017-05-15 01:10] VITALS: BP 155/109; PULSE 89; RESP 20; TEMP 97.7; O2SAT 94
[2017-05-15 01:27] VITALS: O2SAT 98
[2017-05-15] MEDS: methylPREDNISolone SOD SUCC 125 MG/2 ML VIAL IV ONE (01:27)
[2017-05-15 01:30] VITALS: BP 114/74; PULSE 85; RESP 20; O2SAT 96
[2017-05-15] MEDS ORDERED: RESP: ALBUTEROL 2.5 MG/IPRATROPIUM 0.5 MG NEB (SCH) NEB ONE ×3 (02:15)
--- NOTE | 2017-05-15 02:27 | PD ---
HPI Chief Complaint: Shortness of breath, wheezing Time Seen by Provider: 02:26 Travel History International Travel<30 days: No Contact w/Intl Traveler<30days: No Traveled to known affect area: No History of Present Illness HPI The patient is a 51-year-old male that has a history of asthma and possibly COPD who complains of shortness of breath since this morning. He denies any fever. He has a nebulizer machine at home but states that the DuoNeb's work much better than the albuterol. He does not smoke. PFSH Past Medical History Hx Anticoagulant Therapy: No Asthma: Yes Cardiovascular Problems: No Chemotherapy: No Cerebrovascular Accident: Yes (X3) Diabetes: No Diminished Hearing: No Headaches: Yes Kidney Stones: Yes Respiratory: Yes (ASTHMA) Immunizations Current: Yes Migraines: Yes Pneumonia: Yes Past Surgical History Tonsillectomy: Yes Social History Alcohol Use: Yes (VERY RARE) Tobacco Use: Yes (occasional cigar) Substance Use: No Allergies-Medications (Allergen,Severity, Reaction): Coded Allergies: No Known Allergies (Verified Adverse Reaction, Unknown, 05/15/17) Reported Meds & Prescriptions Reported Meds & Active Scripts Active Duoneb (Ipratropium-Albuterol Neb) 0.5-2.5 Mg/3 Ml Neb 1 Nebule INH Q4HR NEB Reported Albuterol Neb (Albuterol Sulfate) 2.5 Mg/3 Ml Neb 2.5 Mg NEB QID NEB Review of Systems Except as stated in HPI: all other systems reviewed are Neg Physical Exam Narrative GENERAL: The patient is alert, oriented 3 in slight respiratory distress. His vital signs show blood pressure 125/109 but are otherwise unremarkable. SKIN: Focused skin assessment warm/dry. HEAD: Atraumatic. Normocephalic. EYES: Pupils equal and round. No scleral icterus. No injection or drainage. ENT: No nasal bleeding or discharge. Mucous membranes pink and moist. NECK: Trachea midline. No JVD. CARDIOVASCULAR: Regular rate and rhythm. No murmur appreciated. RESPIRATORY: No accessory muscle use. Bilateral wheezes are heard in all lung [place]. Breath sounds equal bilaterally. GASTROINTESTINAL: Abdomen soft, non-tender, nondistended. Hepatic and splenic margins not palpable. MUSCULOSKELETAL: No obvious deformities. No clubbing. No cyanosis. No edema. NEUROLOGICAL: Awake and alert. No obvious cranial nerve deficits. Motor grossly within normal limits. Normal speech. PSYCHIATRIC: Appropriate mood and affect; insight and judgment normal. Data Data Last Documented VS Vital Signs Date Time Temp Pulse Resp B/P (MAP) Pulse Ox O2 Delivery O2 Flow Rate FiO2 05/15/17 03:30 74 20 142/92 (109) 94 Room Air 05/15/17 01:30 2.00 05/15/17 01:10 97.7 Orders Orders Methylprednisolone So Succ Inj (Solumedr (05/15/17 02:15) Albuterol-Ipratropium Neb (Duoneb Neb) (05/15/17 02:15) Albuterol-Ipratropium Neb (Duoneb Neb) (05/15/17 02:15) Albuterol-Ipratropium Neb (Duoneb Neb) (05/15/17 02:15) Chest, Single Ap (05/15/17 ) Complete Blood Count With Diff (05/15/17 01:20) B-Type Natriuretic Peptide (05/15/17 01:20) Comprehensive Metabolic Panel (05/15/17 01:20) Albuterol-Ipratropium Neb (Duoneb Neb) (05/15/17 03:30) Labs Laboratory Tests Test 05/15/17 01:20 White Blood Count 9.1 TH/MM3 Red Blood Count 5.70 MIL/MM3 Hemoglobin 17.8 GM/DL Hematocrit 51.2 % Mean Corpuscular Volume 89.7 FL Mean Corpuscular Hemoglobin 31.3 PG Mean Corpuscular Hemoglobin Concent 34.8 % Red Cell Distribution Width 13.0 % Platelet Count 301 TH/MM3 Mean Platelet Volume 7.7 FL Neutrophils (%) (Auto) 46.7 % Lymphocytes (%) (Auto) 37.0 % Monocytes (%) (Auto) 8.5 % Eosinophils (%) (Auto) 7.0 % Basophils (%) (Auto) 0.8 % Neutrophils # (Auto) 4.2 TH/MM3 Lymphocytes # (Auto) 3.4 TH/MM3 Monocytes # (Auto) 0.8 TH/MM3 Eosinophils # (Auto) 0.6 TH/MM3 Basophils # (Auto) 0.1 TH/MM3 CBC Comment DIFF FINAL Differential Comment Blood Urea Nitrogen 21 MG/DL Creatinine 1.20 MG/DL Random Glucose 95 MG/DL Total Protein 8.1 GM/DL Albumin 4.0 GM/DL Calcium Level 8.9 MG/DL Alkaline Phosphatase 112 U/L Aspartate Amino Transf (AST/SGOT) 17 U/L Alanine Aminotransferase (ALT/SGPT) 28 U/L Total Bilirubin 0.3 MG/DL Sodium Level 140 MEQ/L Potassium Level 3.5 MEQ/L Chloride Level 106 MEQ/L Carbon Dioxide Level 29.0 MEQ/L Anion Gap 5 MEQ/L Estimat Glomerular Filtration Rate 63 ML/MIN B-Type Natriuretic Peptide 1 PG/ML MDM Medical Decision Making Medical Screen Exam Complete: Yes Emergency Medical Condition: Yes Medical Record Reviewed: Yes Interpretation(s) The CBC shows a hemoglobin is 17.8 and hematocrit of 51.2 but the rest of the CBC is normal. The complete metabolic profile shows a BUN of 21, GFR of 63 but is otherwise unremarkable. The chest x-ray shows no acute disease. Differential Diagnosis COPD with acute exacerbation, pneumonia, bronchitis with bronchospasm, acute asthma, viral upper respiratory infection Narrative Course The patient appears to have bronchitis with bronchospasm. Plan: The patient will be given duo nebs at home and a 7 day course of prednisone, 20 mg twice daily for 7 days. Diagnosis Primary Impression: Bronchitis with bronchospasm Med/Other Pt SpecificInfo: Prescription(s) given Scripts Ipratropium-Albuterol Neb (Duoneb) 0.5-2.5 Mg/3 Ml Neb 1 NEBULE INH Q4HR NEB for SHORTNESS OF BREATH, #40 NEBULE 0 Refills Prov: Deep Reeves MD 05/15/17 Prednisone (Prednisone) 20 Mg Tab 20 MG PO BID for 7 Days, #14 TAB 0 Refills Prov: Deep Reeves MD 05/15/17 Disposition: 01 DISCHARGE HOME Condition: Stable Deep Reeves MD May 15, 2017 02:27
[2017-05-15 02:30] VITALS: BP 151/102; PULSE 91; RESP 18; O2SAT 96
[2017-05-15 03:00] LABS: AUTOMATED NEUTROPHIL # 4.2 TH/MM3 (1.8-7.7); BASOPHIL # 0.1 TH/MM3 (0-0.2); BASOPHIL % 0.8 % (0.0-2.0); EOSINOPHIL # 0.6 TH/MM3 (0-0.4); HEMATOCRIT 51.2 % (39.0-51.0); HEMOGLOBIN 17.8 GM/DL (13.0-17.0); LYMPHOCYTE # 3.4 TH/MM3 (1.0-4.8); MEAN CELL VOLUME 89.7 FL (80.0-100.0); MEAN CORPUSCULAR HEMOGLOBIN 31.3 PG (27.0-34.0); MEAN CORPUSCULAR HGB CONC 34.8 % (32.0-36.0); MEAN PLATELET VOLUME 7.7 FL (7.0-11.0); MONO % 8.5 % (0.0-8.0); MONOCYTE # 0.8 TH/MM3 (0-0.9); NEUT % 46.7 % (16.0-70.0); PLATELET COUNT 301 TH/MM3 (150-450); WHITE BLOOD COUNT 9.1 TH/MM3 (4.0-11.0)
[2017-05-15 03:05] LABS: BLOOD UREA NITROGEN 21 MG/DL (7-18)
[2017-05-15 03:06] LABS: ALKALINE PHOSPHATASE 112 U/L (45-117); ALT (GPT) 28 U/L (12-78); AST (GOT) 17 U/L (15-37); CALCIUM 8.9 MG/DL (8.5-10.1); GLOMERULAR FILTRATION RATE 63 ML/MIN (>89); GLUCOSE,RANDOM 95 MG/DL (74-106); SODIUM (NA) 140 MEQ/L (136-145); TOTAL BILIRUBIN ADULT 0.3 MG/DL (0.2-1.0); TOTAL PROTEIN 8.1 GM/DL (6.4-8.2)
[2017-05-15 03:07] LABS: CHLORIDE 106 MEQ/L (98-107)
[2017-05-15] MEDS: RESP: ALBUTEROL 2.5 MG/IPRATROPIUM 0.5 MG NEB (SCH) INH ×2 (03:26→03:39)
[2017-05-15 03:30] VITALS: BP 142/92; PULSE 74; RESP 20; O2SAT 94
[2017-05-15] MEDS ORDERED: PRED20 PO (04:51)
[2017-05-15] MEDS ORDERED: IPRASOL INH (04:52)
[2017-05-15 04:59] VITALS: BP 136/97
--- NOTE | 2017-05-16 14:04 | RADRPT ---
EXAM DATE/TIME: 05/15/2017 01:34 [facility] COMPARISON: CHEST SINGLE AP, October 23, 2015, 22:49. INDICATIONS : Shortness of breath. MEDICAL HISTORY : Asthma SURGICAL HISTORY : None. ENCOUNTER: Initial ACUITY: 1 day PAIN SCORE: 0/10 LOCATION: Bilateral chest FINDINGS: A single view of the chest demonstrates the lungs to be symmetrically aerated without evidence of mas s, infiltrate or effusion. The cardiomediastinal contours are unremarkable. Osseous structures are intact. CONCLUSION: No acute disease. Mark Epps MD on May 15, 2017 at 1:44 Board Certified Radiologist. This report was verified electronically.
== END 2017-05-15 05:28 | disposition home or self-care (01) ==
LOC: PHED 00:57
DX: J40 Bronchitis, not specified as acute or chronic (principal); J45.909 Unspecified asthma, uncomplicated; Z86.73 Personal history of transient ischemic attack (TIA), and cerebral infarction without residual deficits; Z87.442 Personal history of urinary calculi
CPT/HCPCS: 71045; 80053; 83880; 85025; 94640; 94664; 96374; 99284; J2930

== ENCOUNTER 2017-06-11 10:18 | Emergency (ER) | payer SELFPAY ==
[~2017-06-11] VITALS: Ht 175.3 cm; Wt 79.0 kg
[~2017-06-11 10:18] MED LIST changes: +PRED20 PO
[2017-06-11 10:23] VITALS: BP 143/93; PULSE 85; RESP 16; TEMP 98.3; O2SAT 94
[2017-06-11] MEDS ORDERED: SODIUM CHLORIDE 0.9% FLUSH 10 ML FLUSH IVF PRN (11:45)
[2017-06-11] MEDS ORDERED: methylPREDNISolone SOD SUCC 125 MG/2 ML VIAL IV PUSH ONE (11:45)
--- NOTE | 2017-06-11 11:45 | PD ---
HPI Chief Complaint: Respiratory Symptoms Time Seen by Provider: 11:42 Travel History International Travel<30 days: No Contact w/Intl Traveler<30days: No Traveled to known affect area: No History of Present Illness HPI 51-year-old male patient with history of asthma, previous bronchitis and pneumonia, resents to the ER today for 5 days history of coughing, shortness of breath, wheezing worse in the last 3 days, not improving with his nebulizers at home. He states it acts up in the morning. He denies any fevers, vomiting, chest pains, or other symptoms. Modifying Factors: None Associated Signs & Symptoms: Coughing, wheezing, shortness of breath in the last 5 days, worse in the last 3 Risk Factors: Asthma history PFSH Past Medical History Hx Anticoagulant Therapy: No Asthma: Yes Cardiovascular Problems: No Chemotherapy: No Cerebrovascular Accident: Yes (X3) Diabetes: No Diminished Hearing: No Headaches: Yes Kidney Stones: Yes Respiratory: Yes (ASTHMA) Immunizations Current: Yes Migraines: Yes Pneumonia: Yes Influenza Vaccination: No Past Surgical History Tonsillectomy: Yes Social History Alcohol Use: Yes (VERY RARE) Tobacco Use: No (quit) Substance Use: No Allergies-Medications (Allergen,Severity, Reaction): Coded Allergies: No Known Allergies (Verified Adverse Reaction, Unknown, 06/11/17) Reported Meds & Prescriptions Reported Meds & Active Scripts Active Duoneb (Ipratropium-Albuterol Neb) 0.5-2.5 Mg/3 Ml Neb 1 Nebule INH Q4HR NEB Reported Albuterol Neb (Albuterol Sulfate) 2.5 Mg/3 Ml Neb 2.5 Mg NEB QID NEB Review of Systems Except as stated in HPI: all other systems reviewed are Neg Physical Exam Narrative GENERAL: Well-developed middle-age male patient currently in mild distress. Awake and oriented 3. SKIN: Focused skin assessment warm/dry. HEAD: Atraumatic. Normocephalic. EYES: Pupils equal and round. No scleral icterus. No injection or drainage. ENT: No nasal bleeding or discharge. Mucous membranes pink and moist. NECK: Trachea midline. No JVD. Supple. CARDIOVASCULAR: Regular rate and rhythm. No murmur appreciated. RESPIRATORY: No accessory muscle use. Wheezing bilaterally. Breath sounds equal bilaterally. GASTROINTESTINAL: Abdomen soft, non-tender, nondistended. Hepatic and splenic margins not palpable. MUSCULOSKELETAL: No obvious deformities. No clubbing. No cyanosis. No edema. NEUROLOGICAL: Awake and alert. No obvious cranial nerve deficits. Motor grossly within normal limits. Normal speech. PSYCHIATRIC: Appropriate mood and affect; insight and judgment normal. Data Data Last Documented VS Vital Signs Date Time Temp Pulse Resp B/P (MAP) Pulse Ox O2 Delivery O2 Flow Rate FiO2 06/11/17 12:45 95 Room Air 06/11/17 12:15 88 20 06/11/17 10:23 98.3 143/93 (110) Orders Orders Complete Blood Count With Diff (06/11/17 11:42) Basic Metabolic Panel (Bmp) (06/11/17 11:42) B-Type Natriuretic Peptide (06/11/17 11:42) Iv Access Insert/Monitor (06/11/17 11:42) Ecg Monitoring (06/11/17 11:42) Oximetry (06/11/17 11:42) Oxygen Administration (06/11/17 11:42) Chest, Single Ap (06/11/17 11:42) Sodium Chloride 0.9% Flush (Ns Flush) (06/11/17 11:45) Methylprednisolone So Succ Inj (Solumedr (06/11/17 11:45) Albuterol-Ipratropium Neb (Duoneb Neb) (06/11/17 11:45) Albuterol-Ipratropium Neb (Duoneb Neb) (06/11/17 13:00) Ed Discharge Order (06/11/17 13:52) Labs Laboratory Tests Test 06/11/17 12:00 White Blood Count 7.4 TH/MM3 Red Blood Count 5.54 MIL/MM3 Hemoglobin 16.4 GM/DL Hematocrit 50.2 % Mean Corpuscular Volume 90.6 FL Mean Corpuscular Hemoglobin 29.5 PG Mean Corpuscular Hemoglobin Concent 32.6 % Red Cell Distribution Width 12.4 % Platelet Count 272 TH/MM3 Mean Platelet Volume 7.4 FL Neutrophils (%) (Auto) 54.6 % Lymphocytes (%) (Auto) 25.3 % Monocytes (%) (Auto) 8.8 % Eosinophils (%) (Auto) 9.9 % Basophils (%) (Auto) 1.4 % Neutrophils # (Auto) 4.1 TH/MM3 Lymphocytes # (Auto) 1.9 TH/MM3 Monocytes # (Auto) 0.6 TH/MM3 Eosinophils # (Auto) 0.7 TH/MM3 Basophils # (Auto) 0.1 TH/MM3 CBC Comment DIFF FINAL Differential Comment Blood Urea Nitrogen 19 MG/DL Creatinine 0.99 MG/DL Random Glucose 90 MG/DL Calcium Level 8.9 MG/DL Sodium Level 141 MEQ/L Potassium Level 3.7 MEQ/L Chloride Level 108 MEQ/L Carbon Dioxide Level 29.6 MEQ/L Anion Gap 3 MEQ/L Estimat Glomerular Filtration Rate 79 ML/MIN B-Type Natriuretic Peptide 2 PG/ML MDM Medical Decision Making Medical Screen Exam Complete: Yes Emergency Medical Condition: Yes Medical Record Reviewed: Yes Interpretation(s) Laboratory Tests Test 06/11/17 12:00 Monocytes (%) (Auto) 8.8 % (0.0-8.0) Eosinophils (%) (Auto) 9.9 % (0.0-4.0) Eosinophils # (Auto) 0.7 TH/MM3 (0-0.4) Blood Urea Nitrogen 19 MG/DL (7-18) Chloride Level 108 MEQ/L (98-107) Anion Gap 3 MEQ/L (5-15) Estimat Glomerular Filtration Rate 79 ML/MIN (>89) Last 24 hours Impressions Chest X-Ray 06/11/17 1142 Signed Impressions: Service Date/Time: Tuesday, June 11, 2017 12:34 - CONCLUSION: No acute disease. There is no evidence of pneumonia. Mark Epps MD Differential Diagnosis Coughing and wheezing: Bronchitis versus pneumonia versus asthma exacerbation Narrative Course Chest x-ray did not show any signs of acute pneumonia. Patient was given Solu- Medrol and multiple nebulizers in the ER. On reevaluation at 1:50 PM, he is feeling improved. On exam, his wheezing is subsiding. His saturations were 92 % while sleeping but when I talked to him, his saturations coming up to 98% on room air. At this point, my plan would be to release him at follow-up to primary care physician. We will give him further treatment for asthma exacerbation and concern it may be an underlying bronchitis component, my plan would be to give him Zithromax as well. Return for worsening in symptoms as necessary for the plan has been discussed with him he states understanding. Diagnosis Primary Impression: Asthma exacerbation Med/Other Pt SpecificInfo: Prescription(s) given Scripts Albuterol 6.7 GM Inh (Proventil Hfa 6.7 GM Inh) 90 Mcg/Act Aer 2 PUFF INH Q4-6H Y for SHORTNESS OF BREATH, #1 INHALER 0 Refills Prov: Estuardo Tanner MD 06/11/17 Azithromycin (Zithromax Z-João) 250 Mg Dspk 250 MG PO DIRECTED for Infection, #1 DSPK 0 Refills 500 MG (2 tabs) day 1, then 1 tab days 2-5. Prov: Estuardo Tanner MD 06/11/17 Prednisone (Prednisone) 50 Mg Tab 50 MG PO DAILY for 5 Days, #5 TAB 0 Refills Prov: Estuardo Tanner MD 06/11/17 Disposition: 01 DISCHARGE HOME Condition: Stable Estuardo Tanner MD Jun 11, 2017 11:45
[2017-06-11] MEDS: RESP: ALBUTEROL 2.5 MG/IPRATROPIUM 0.5 MG NEB (SCH) INH ×2 (11:50→13:03)
[2017-06-11 12:15] VITALS: PULSE 88; RESP 20; O2SAT 95
[2017-06-11 12:17] LABS: AUTOMATED NEUTROPHIL # 4.1 TH/MM3 (1.8-7.7); BASOPHIL # 0.1 TH/MM3 (0-0.2); BASOPHIL % 1.4 % (0.0-2.0); EOSINOPHIL # 0.7 TH/MM3 (0-0.4); EOSINOPHIL % 9.9 % (0.0-4.0); HEMATOCRIT 50.2 % (39.0-51.0); HEMOGLOBIN 16.4 GM/DL (13.0-17.0); LYMPH % 25.3 % (9.0-44.0); LYMPHOCYTE # 1.9 TH/MM3 (1.0-4.8); MEAN CELL VOLUME 90.6 FL (80.0-100.0); MEAN CORPUSCULAR HEMOGLOBIN 29.5 PG (27.0-34.0); MEAN CORPUSCULAR HGB CONC 32.6 % (32.0-36.0); MEAN PLATELET VOLUME 7.4 FL (7.0-11.0); MONO % 8.8 % (0.0-8.0); MONOCYTE # 0.6 TH/MM3 (0-0.9); NEUT % 54.6 % (16.0-70.0); PLATELET COUNT 272 TH/MM3 (150-450); RED BLOOD COUNT 5.54 MIL/MM3 (4.50-5.90); RED CELL DISTRIBUTION WIDTH 12.4 % (11.6-17.2); WHITE BLOOD COUNT 7.4 TH/MM3 (4.0-11.0)
[2017-06-11 12:30] LABS: CALCIUM 8.9 MG/DL (8.5-10.1)
[2017-06-11 12:31] LABS: BICARBONATE 29.6 MEQ/L (21.0-32.0)
[2017-06-11 12:34] LABS: CREATININE 0.99 MG/DL (0.60-1.30)
[2017-06-11 12:45] VITALS: O2SAT 95
--- NOTE | 2017-06-11 12:49 | RADRPT ---
EXAM DATE/TIME: 06/11/2017 12:34 [facility] COMPARISON: CHEST SINGLE AP, May 15, 2017, 1:34. INDICATIONS : Short of breath, cough MEDICAL HISTORY : asthma SURGICAL HISTORY : None. ENCOUNTER: Initial ACUITY: 3 days PAIN SCORE: 0/10 LOCATION: Bilateral chest FINDINGS: A single view of the chest demonstrates the lungs to be symmetrically aerated without evidence of mas s, infiltrate or effusion. The cardiomediastinal contours are unremarkable. Osseous structures are intact. Overlying electrocardiogram leads are present. CONCLUSION: No acute disease. There is no evidence of pneumonia. Mark Epps MD on June 11, 2017 at 12:46 Board Certified Radiologist. This report was verified electronically.
[2017-06-11] MEDS ORDERED: ALBU6.7H INH (13:54)
[2017-06-11] MEDS ORDERED: ZITHTAB PO (13:54)
[2017-06-11] MEDS ORDERED: PRED50 PO (13:54)
[2017-06-11 14:08] VITALS: BP 150/86; PULSE 89; RESP 18; O2SAT 95
== END 2017-06-11 14:17 | disposition home or self-care (01) ==
LOC: PHED 10:18 → PHEFT 14:17
DX: J45.901 Unspecified asthma with (acute) exacerbation (principal); Z86.73 Personal history of transient ischemic attack (TIA), and cerebral infarction without residual deficits; Z87.891 Personal history of nicotine dependence
CPT/HCPCS: 71045; 80048; 83880; 85025; 94640; 94664; 96374; 99284; J2930